=== PATIENT | female | born 1960 | race American Indian/Alaskan Native ===

== ENCOUNTER 2019-08-03 07:38 | Day surgery (SDC) | payer BC, MEDICARE ==
[2019-08-03] MEDS ORDERED: SODIUM CHLORIDE 0.9% 500 ML 500 ML IV SCH (08:00)
[2019-08-03] MEDS ORDERED: ASPIRIN EC 325 MG TAB PO ONE (08:00)
[2019-08-03 08:48] LABS: Basophils # (Auto) 0.1 K/mm3 (0.0-0.1); Basophils % (Auto) 1.3 % (0.0-1.8); Eosinophils # (Auto) 0.2 K/mm3 (0.0-0.4); Eosinophils % (Auto) 3.8 % (0.0-4.3); Hematocrit 38.5 % (30.3-42.9); Hemoglobin 12.4 gm/dl (10.1-14.3); Lymphocytes # (Auto) 1.4 K/mm3 (1.2-5.4); Lymphocytes % (Auto) 28.7 % (13.4-35.0); Mean Corpuscular HGB Conc 32 % (30-34); Mean Corpuscular Volume 87 fl (79-97); Monocytes # (Auto) 0.4 K/mm3 (0.0-0.8); Monocytes % (Auto) 8.7 % (0.0-7.3); Platelet Count 204 K/mm3 (140-440); Red Blood Count 4.45 M/mm3 (3.65-5.03); Red Cell Distribution Width 12.7 % (13.2-15.2)
[2019-08-03 08:59] LABS: BUN/Creatinine Ratio 33; Blood Urea Nitrogen 33 mg/dL (7-17); Calcium 9.7 mg/dL (8.4-10.2); Hemolysis Index 2
[2019-08-03 09:15] LABS: INR 0.92 (0.87-1.13)
[2019-08-03] MEDS ORDERED: HEPARIN/NS 5000 UNIT/500ML 1,000 ML IR ONE (09:50)
[2019-08-03] MEDS ORDERED: MIDAZOLAM 2 MG/2 ML INJ ONE (09:50)
[2019-08-03] MEDS ORDERED: HEPARIN 10,000 UNITS/10 ML VIAL ONE (09:50)
[2019-08-03] MEDS ORDERED: NITROGLYCERIN SYRINGE 0 ML ONE (09:51)
[2019-08-03] MEDS ORDERED: VERAPAMIL 5 MG/2 ML INJ ONE (09:51)
[2019-08-03] MEDS ORDERED: LIDOCAINE (2%) 20 MG/1 ML VIAL 20 ML MDV INFILTRATI ONE (09:51)
[2019-08-03] MEDS ORDERED: fentaNYL 100 MCG/2 ML INJ ONE (09:51)
--- NOTE | 2019-08-03 11:20 | Cardiac Catherization Report ---
CARDIAC CATHETERIZATION REPORT INDICATION FOR PROCEDURE: The patient is a 58-year-old -[place] female with history of hypertension, hyperlipidemia, was noted to have frequent PVCs. Because of this, underwent stress nuclear imaging at which time she was noted to have a medium sized anterior wall defect. Hence, the patient is scheduled for cardiac catheterization for definitive diagnosis and treatment. The patient is aware of the procedure, potential complications and alternatives of therapy available. The patient is aware of the alternative of medical therapy. She is willing to proceed with cardiac catheterization for definitive diagnosis. The patient is not having any symptoms of chest pain with her usual activities. DESCRIPTION OF PROCEDURE: The patient was brought to the catheterization laboratory in a fasting condition. The right wrist area and forearm thoroughly cleansed with Betadine solution. The patient was evaluated for moderate sedation and was felt to be appropriate candidate for moderate sedation, which was started at 9:58 a.m. using IV Versed and fentanyl. Subsequently, she was monitored with pulse oximetry, EKG monitoring and hemodynamic monitoring. Sterile drapes were applied and local anesthesia was given in the right wrist area, right radial artery puncture was made without difficulty using a 21-gauge arterial puncture needle. A 5-Yakut slender sheath was introduced. The patient received 5 mg of intra-arterial verapamil and 3000 units of intravenous heparin. The patient subsequently under fluoroscopy/contrast angiography , underwent angiography of the left ventricle in BUTLER projection using hand injection followed by angiography of the left coronary artery in multiple views and angiography of the right coronary artery in multiple views using 5-Yakut multipurpose catheter. Procedure was uncomplicated. The patient did have frequent APCs during the procedure. Otherwise, the patient tolerated the procedure well. After finally angiograms were obtained, catheter was removed. The patient's moderate sedation monitoring ended at 10:17 a.m. The patient at the end of the procedure is communicating normally without any complaints of chest pain or shortness of breath and moving all the extremities and breathing normally. The patient was transferred to the room in stable condition. The right radial hemostasis will be obtained with a radial band application. In the catheterization laboratory, the patient did not have any complications. Following findings were noted. HEMODYNAMICS: 1. Opening aortic pressure 139/71, left ventricular pressure 147/17. No gradient across the aortic valve. Estimated ejection fraction 65% or more. 2. Left ventriculogram done in BUTLER projection showed normal sized left ventricle with normal contractility. End-diastolic and systolic volumes are normal. Mitral regurgitation could not be evaluated because of limited amount of dye injected. 3. Right coronary artery dominant vessel arises normally from right coronary cusp. Angiographically smooth and normal. 4. Left coronary artery arises normally from left coronary cusp. Left main without significant disease. There is very mild calcification noted in the proximal part of the LAD. Also, there is 5-10% smooth proximal LAD lesion noted. Rest of the LAD and its branches and circumflex artery and its branch are angiographically smooth and normal. Arteries are tortuous. FINAL IMPRESSION: Normal sized left ventricle with normal contractility. Only very mild coronary artery disease noted with mild calcification of the proximal LAD in 5-10% smooth lesion of the proximal LAD. Rest of the coronary arteries are normal. The patient did have frequent PVCs throughout the procedure. However, overall the patient tolerated the procedure well. No untoward complications were noted. The patient was transferred to the room in stable condition. The patient will be continued on risk factor modification. Findings were explained with the patient. JOB# [id number] LORE/SENIA LUNA
[2019-08-03 12:59] VITALS: BP 123/58
--- NOTE | 2019-08-03 13:44 | Short Stay Summary ---
Short Stay Documentation Date of service: 08/03/19 - History H&P: obtained from office - Allergies and Medications Current Medications: Allergies Sulfa (Sulfonamide Antibiotics) Adverse Reaction (Verified 08/03/19 08:11) Swelling Home Medications Medication Instructions Recorded Confirmed Last Taken Type Baclofen 20 mg PO DAILY 08/03/19 08/03/19 08/03/19 08:45 History 1 tab Gabapentin 400 mg PO DAILY 08/03/19 08/03/19 08/03/19 08:45 History 1 capsule Naproxen 500 mg PO TID 08/03/19 08/03/19 08/02/19 History 1 tab Simvastatin 20 mg PO DAILY 08/03/19 08/03/19 08/02/19 History 1 tab lisinopriL [Zestril TAB] 10 mg PO DAILY 08/03/19 08/03/19 08/03/19 08:45 History 1 tab Active Medications Sodium Chloride (Nacl 0.9% 500 Ml) 500 mls @ 50 mls/hr IV DIRECT ANDREW Stop: 08/03/19 17:59 - Brief post op/procedure progress note Date of procedure: 08/03/19 Pre-op diagnosis: abnormal stress test Post-op diagnosis: other (mild CAD) Procedure: C - see dictated cath report Anesthesia: local Estimated blood loss: none Condition: stable - Disposition Condition at discharge: Good Disposition: [id number] TO HOME OR SELFCARE - Discharge Diagnoses (1) Mild CAD Status: Chronic (2) HTN (hypertension) Status: Chronic (3) Hyperlipidemia Status: Chronic (4) PVCs (premature ventricular contractions) Status: Chronic Short Stay Discharge Plan Activity: advance as tolerated Diet: low fat, low cholesterol, low salt Wound: open to air, keep clean and dry, per your surgeon's advice Follow up with: JILLIAN JOHNSON MD [Primary Care Provider] - 7 Days Forms: CardCath PCI D/C Instructions
== END 2019-08-03 07:39 | disposition home or self-care (01) ==
LOC: CATHLABREC 07:38
PROVIDERS: ATTEND Internal Medicine
DX: R94.39 Abnormal result of other cardiovascular function study (principal); I10 Essential (primary) hypertension; E78.5 Hyperlipidemia, unspecified; I25.10 Atherosclerotic heart disease of native coronary artery without angina pectoris; I49.3 Ventricular premature depolarization; M06.9 Rheumatoid arthritis, unspecified; Z79.899 Other long term (current) drug therapy; Z88.2 Allergy status to sulfonamides; Z98.890 Other specified postprocedural states; Z86.2 Personal history of diseases of the blood and blood-forming organs and certain disorders involving the immune mechanism
CPT/HCPCS: 36415; 80048; 85025; 85610; 85730; 93005; 93010; 93458; 99156; C1894; J1644; J2250; J3010; J7040; Q9967